=== PATIENT | male | born 1985 | race Caucasian/White ===

== ENCOUNTER 2024-02-11 06:00 | Outpatient (RCR) | payer BC, SELFPAY | END 2024-02-28 23:59 | disposition home or self-care (01) | LOC: TPT 06:00 | PROVIDERS: Visit Provider Family Medicine | DX: S39.012D Strain of muscle, fascia and tendon of lower back, subsequent encounter (principal); X58.XXXD Exposure to other specified factors, subsequent encounter | CPT/HCPCS: 97110; 97161 ==